=== PATIENT | male | born 1960 | race Caucasian/White ===

== ENCOUNTER 2020-05-30 10:16 | Outpatient (RCR) | payer MEDICAID, SELFPAY | END 2020-06-22 23:59 | disposition home or self-care (01) | LOC: SPT 10:16 | PROVIDERS: PCP Family Medicine; Referring Provider Family Medicine; Visit Provider Family Medicine | DX: G89.29 Other chronic pain (principal); M54.9 Dorsalgia, unspecified | CPT/HCPCS: 97110; 97161; G0283 ==

== ENCOUNTER 2020-06-07 10:11 | Outpatient (CLI) | payer MEDICAID, SELFPAY ==
--- NOTE | 2020-06-07 10:34 | CT_ITS ---
WS: [id number] LDCT LUNG CANCER SCREENING HISTORY: NICOTINE DEPENDENCE TECHNIQUE: Axial imaging performed from the apices to 1 cm below the costophrenic angles. Coronal and sagittal reformats are submitted with axial MIP series. All CT scans at [facility] use at least one of these dose optimization techniques: automated exposure control; mA and/or kV adjustment per patient size (includes targeted exams where dose is matched to clinical indication); or iterativ e reconstruction. DLP: 59.14 mGy.cm DIvol: 1.58 mGy COMPARISON: 07/17/2006 Diagnostic quality: Satisfactory Lung Nodules: None. No endobronchial lesions. Lungs: Chronic emphysema with mild articular relations in the periphery of the lobes. No bronchiectas is. Heart: Mild cardiomegaly. Extensive coronary artery calcifications involving the LEFT anterior descen ding and circumflex arteries. No pericardial effusion. Other findings: Mild atherosclerosis aorta. Calcification extends into the proximal great vessels. Pu lmonary artery size is equal to the aorta. Mild circumferential thickening of the distal esophagus. CT/CT lung screening [id number] IMPRESSION: LUNG-RADS: 1S-Negative with Significant Findings FOLLOW UP: 12 Month: Continue annual screening with LDCT OTHER FINDINGS (S MODIFIER): Moderate coronary artery atherosclerosis.
== END 2020-06-07 10:12 | disposition home or self-care (01) ==
LOC: CT 10:15
PROVIDERS: PCP Family Medicine; Visit Provider Family Medicine
DX: Z12.2 Encounter for screening for malignant neoplasm of respiratory organs (principal); F17.200 Nicotine dependence, unspecified, uncomplicated
CPT/HCPCS: G0297

== ENCOUNTER 2020-06-28 07:23 | Day surgery (SDC) | payer MEDICAID, SELFPAY ==
[2020-06-26 14:00] VITALS: BMI 25.8
[2020-06-28 08:00] VITALS: BP 124/80; PULSE 82; RESP 18; TEMP 36.4; O2SAT 98
[2020-06-28] MEDS: sodium chloride 0.9% 1,000 ML 30 ML IV (08:11)
--- NOTE | 2020-06-28 08:24 | ANES.PREANE2 ---
Pre-Anesthetic Assessment Pre-Anesthetic Assessment: Height/Weight: Height 1.75 m Weight 79.379 kg Temp Pulse Resp BP Pulse Ox 97.5 F L 82 18 124/80 98 06/28/20 08:00 06/28/20 08:00 06/28/20 08:00 06/28/20 08:00 06/28/20 08:00 Preop Diagnosis: History of colon polyps Proposed Procedure: Operation Date: 06/28/20 08:30 Proposed Procedures p Colonoscopy 81687 z86.010(Not Applicable) - Jaxon Cruz MD Operation Date: 06/28/20 08:30 Proposed Procedures p Colonoscopy 11370 Z86.010(Not Applicable) - Jaxon Cruz MD Familial anesthetic complications: None Was Beta Leandra taken within 24 hours: Yes Last intake: Intake Last Liquid Date 06/27/20 Last Liquid Time 23:00 Last Solid Date 06/26/20 Last Solid Time 17:00 Social: Social History: Tobacco and No alcohol Exam: Pre-Anes Outpt Exam: alert, oriented x 3, clear to auscultation bilaterally and regular rate & rhythm Airway: Cervical ROM: WNL MP: 3 Dentition: Full Additional comments: Full aguila Pulmonary: Pulmonary: COPD CV/HEM: CV/HEM: CAD (seen on CT scan) and HTN Metabolic: Metabolic: Hyperlipidemia Anesthetic Plan: ASA status: 3 Anesthesia: MAC Risk of > 500 ml blood loss (7ml/kg in children): No Meds/Allergies Current Medications: Current Medications Generic Name Dose Route Start Last Admin Trade Name Freq PRN Reason Stop Dose Admin Sodium Chloride 1,000 mls @ 30 ml s/hr 06/28/20 08:00 06/28/20 08:11 Sodium Chloride 0.9% IV 06/29/20 07:59 30 mls/hr .Q24H JOSE Administration PFSH Anesthesia PFSH: Surgical History History of colonoscopy with polypectomy (~2012) Family History Mother CAD (coronary artery disease) Diabetes Hypertension Denies family history of Anesthesia complication Bleeding disorder Social History Smoking and tobacco status: current every day smoker cigarettes Packs smoked per day: 1 Years cigarettes smoked: 30 Data Anesthesia Cardiac Studies: No Data to Display
--- NOTE | 2020-06-28 09:09 | ANES.PREANE2 ---
Pre-Anesthetic Assessment Pre-Anesthetic Assessment: Height/Weight: Height 1.75 m Weight 79.379 kg Temp Pulse Resp BP Pulse Ox 97.5 F L 82 18 124/80 98 06/28/20 08:00 06/28/20 08:00 06/28/20 08:00 06/28/20 08:00 06/28/20 08:00 Preop Diagnosis: History of colon polyps Proposed Procedure: Operation Date: 06/28/20 08:30 Proposed Procedures p Colonoscopy 47784 z86.010(Not Applicable) - Jaxon Cruz MD Operation Date: 06/28/20 08:30 Proposed Procedures p Colonoscopy 79980 Z86.010(Not Applicable) - Jaxon Cruz MD Familial anesthetic complications: None Was Beta Leandra taken within 24 hours: Yes Last intake: Intake Last Liquid Date 06/27/20 Last Liquid Time 23:00 Last Solid Date 06/26/20 Last Solid Time 17:00 Social: Social History: Tobacco and No alcohol Exam: Pre-Anes Outpt Exam: alert, oriented x 3, clear to auscultation bilaterally and regular rate & rhythm Airway: MP: 3 Dentition: Full Additional comments: full aguila Pulmonary: Pulmonary: COPD CV/HEM: CV/HEM: HTN Metabolic: Metabolic: Hyperlipidemia Anesthetic Plan: ASA status: 3 Anesthesia: MAC Risk of > 500 ml blood loss (7ml/kg in children): No Meds/Allergies Current Medications: Current Medications Generic Name Dose Route Start Last Admin Trade Name Freq PRN Reason Stop Dose Admin Sodium Chloride 1,000 mls @ 30 ml s/hr 06/28/20 08:00 06/28/20 08:11 Sodium Chloride 0.9% IV 06/29/20 07:59 30 mls/hr .Q24H JOSE Administration PFSH Anesthesia PFSH: Surgical History History of colonoscopy with polypectomy (~2012) Family History Mother CAD (coronary artery disease) Diabetes Hypertension Denies family history of Anesthesia complication Bleeding disorder Social History Smoking and tobacco status: current every day smoker cigarettes Packs smoked per day: 1 Years cigarettes smoked: 30 Data Anesthesia Cardiac Studies: No Data to Display
--- NOTE | 2020-06-28 09:10 | W.PM.OPSUD ---
Surgery/Procedure H&P Update DATE OF PROCEDURE: June 28, 2020 DATE H&P PERFORMED: 06/01/20 H&P UPDATE INFORMATION: I have reviewed H&P completed within last 30 days, I have examined patient prior to procedure and No changes to prior documentation PREOP DIAGNOSIS: History of colon polyps PRIMARY INDICATION FOR PROCEDURE: The same PLANNED PROCEDURE: Operation Date: 06/28/20 08:30 Proposed Procedures p Colonoscopy 82609 z86.010(Not Applicable) - Jaxon Cruz MD Operation Date: 06/28/20 08:30 Proposed Procedures p Colonoscopy 28496 Z86.010(Not Applicable) - Jaxon Cruz MD
[2020-06-28 09:40] VITALS: BP 128/86; PULSE 108; RESP 18; TEMP 37.2; O2SAT 99
--- NOTE | 2020-06-28 09:44 | ANE.PACU2 ---
Inpatient post-anesthesia follow up: Airway intact: Yes Vital signs: Temperature 97.5 F Pulse Rate 82 Respiratory Rate 18 Blood Pressure 124/80 Pulse Oximetry 98 Oxygen Delivery Me thod Room Air Oxygen Flow Rate Fraction of Inspir ed Oxygen Hydration adequate: Yes Nausea and vomiting: No Pain level: 1 Mental status: Baseline
[2020-06-28 10:02] VITALS: BP 120/89; PULSE 95; RESP 18; O2SAT 95
== END 2020-06-28 10:05 | disposition home or self-care (01) ==
PROVIDERS: PCP Family Medicine; Visit Provider Surgery
DX: Z86.010 Personal history of colon polyps (principal); D12.8 Benign neoplasm of rectum; J44.9 Chronic obstructive pulmonary disease, unspecified; I10 Essential (primary) hypertension; E78.5 Hyperlipidemia, unspecified; F17.210 Nicotine dependence, cigarettes, uncomplicated
CPT/HCPCS: 12345; 45385; J2704; J7030

== ENCOUNTER 2020-12-15 06:48 | Outpatient (CLI) | payer MEDICAID, SELFPAY ==
--- NOTE | 2020-12-15 07:10 | MR_ITS ---
WS: [id number] MRI BRAIN WITHOUT CONTRAST HISTORY: MILD COGNITIVE IMPAIRMENT COMPARISON: None available. TECHNIQUE: Diffusion imaging, multiplanar T1, T2 and FLAIR imaging obtained. No evidence for acute infarct or hemorrhage. Currie-white matter differentiation is normal. There are numerous round T2 and FLAIR signal hyperintensities in the supratentorial white matter. The se extend from the vertex inferiorly throughout the supratentorial brain. Predominantly subcortical w billy matter lesions but there are few lesions adjacent to the occipital horns. No associated edema or mass effect. Ventricles and extra-axial spaces are normal. No inferior displacement of cerebellar tonsils. The sella turcica and pituitary gland are unremarkabl e. Dural venous sinuses and [place] demonstrate no abnormality on this unenhanced studies. Paranasal sinuses: Air-fluid level in the RIGHT maxillary sinus. Mastoid air cells: Moderate bilateral mastoid air cell effusions. Calvarium and scalp: Intact. MR/MR head wo con* [id number] IMPRESSION: 1. No acute infarct. 2. Numerous round signal hyperintensities in the supratentorial brain. More th an expected for age. These abnormalities may be related to small vessel ischemi c disease, migraines, vasculitis and less likely demyelination. Due to the exte nt of these white matter lesions suggest follow-up MRI brain with contrast to a short there is no enhancement.
== END 2020-12-15 06:49 | disposition home or self-care (01) ==
LOC: RADSHAW 06:50
PROVIDERS: PCP Family Medicine; Visit Provider Family Medicine
DX: G31.84 Mild cognitive impairment of uncertain or unknown etiology (principal)
CPT/HCPCS: 70551

== ENCOUNTER 2021-01-19 07:44 | Outpatient (CLI) | payer MEDICAID, SELFPAY ==
--- NOTE | 2021-01-19 08:03 | MR_ITS ---
WS: [id number] MRI HEAD WITH GADOLINIUM ENHANCEMENT INDICATION: Cognitive impairment TECHNIQUE: Sagittal T1, coronal T2, axial T2, and post gadolinium imaging was obtained. FINDINGS: Comparison recent MRI December 15, 2020. Post gadolinium imaging was obtained today for compari son to recent noncontrast MRI. Again seen are moderate supratentorial white matter changes unchanged since the prior examination. No rmal posterior fossa. Normal vascular flow voids at the skull base. No extra-axial fluid collections. Mild mucosal thickening paranasal sinuses. Opacification mastoid air cells bilaterally. 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 Normal optic chiasm and pituitary infundibulum. Normal cavernous sinuses and Meckel's cave. Proximal 7th and 8th cranial nerves appear normal. No abnormal intracranial enhancement. No enhancing intracranial lesions. Normal dural venous sinuses. No other significant findings. MR/MR head w con [id number] IMPRESSION: 1. Moderate patchy supratentorial white matter changes are stable with mild pa renchymal volume loss. Findings are nonspecific but most likely due to small ve ssel disease in a patient this age. 2. No abnormal intercranial enhancement. No enhancing intracranial lesions. 3. Opacification mastoid air cells bilaterally. 4. Mild mucosal thickening in the paranasal sinuses.
[2021-01-19] MEDS: gadobenate dimeglumine 20 mL vial IV (08:35)
== END 2021-01-19 07:45 | disposition home or self-care (01) ==
LOC: RADWPI 07:53
PROVIDERS: PCP Family Medicine; Visit Provider Family Medicine
DX: G31.84 Mild cognitive impairment of uncertain or unknown etiology (principal)
CPT/HCPCS: 70552; A9577

== ENCOUNTER 2021-01-24 07:15 | Outpatient (CLI) | payer MEDICAID, SELFPAY ==
[2021-01-24 07:39] VITALS: BMI 26.1
--- NOTE | 2021-01-24 07:41 | ECG_ITS ---
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 The perfusion scan will be documented separately. DATA: Baseline heart rate was 84 beats per minute. Baseline blood pressure was 143/91 millimeters of mercury. Target heart rate was 159. Maximum heart rate achieved was 107. which was 67 % of the predicted target heart rate. Maximum blood pressure was 147/91 millimeters of mercury. The reason for ending the test was completion of the protocol. The patient did not experience any symptoms. ELECTROCARDIOGRAM: BASELINE: Sinus rhythm. Normal axis. Interventricular conduction delay, early repolarization abnormality. Otherwise, no ST-T changes suggestive of ischemia noted. No arrhythmia noted. EXERCISE: After Lexiscan injection, no ST-T changes suggestive of ischemic noted. No arrhythmia noted. CONCLUSION: Please note due to baseline abnormality of the EKG specificity and sensitivity of the EKG portion of LexiScan MIBI stress test will be low 1. EKG not suggestive of ischemia 2. Lexiscan injection unremarkable. 3. Perfusion scan will be documented separately. Electronically Signed On 01-25-2021 21:07:16 CDT by LINDSEY DUNAWAY [id number]
--- NOTE | 2021-01-24 07:42 | NMCV_ITS ---
NM carmen perf SPECT r/s* [id number] Niraj Welsh Age: 60 Gender: M : 1960 Exam Date: 01/24/2021 08:42 Ordering Phys: Lindsey Dunaway MD ([email or web address]) Technologist: RAJWINDER Candelario Exam Location: [facility] Indications: PERIPHERAL VASCULAR DISEASE STRESS TEST Please see separate stress test report in [facility] for full findings IMAGE PROTOCOL Rest/Stress 1 Lexiscan Day Radiopharmaceutical Dose (mCi) Administration Site Administered by Rest: Tc-99m 10.9 IV RAJWINDER Vaughan Sestamibi Stress:Tc-99m 32.8 IV RAJWINDER Candelario Sestamiflako Rest: 24-Jan-2021 60 Discovery 630 Stress: 24-Jan-2021 30 Discovery 630 0.4mg Lexiscan. Images obtained in supine and prone position. SPECT RESULTS Technical Quality: Excellent Raw Data Analysis: Normal Image Corrections: No attenuation or motion correction applied Summed Stress Score: 29 Summed Rest Score: 29 Summed Difference Score: 2 PERFUSION FINDINGS Large area of fixed perfusion defect noted in basal to distal anterior, basal to distal inferior and basal to distal inferolateral wall suggestive of old myocardial infarction versus scarring. No significant ischemia noted FUNCTIONAL RESULTS (calculated via Gated SPECT) Stress Image LV EF (%): 40 Stress EDV (mL):288 TID: 1.2 Stress ESV (mL):174 FUNCTIONAL FINDINGS: Mid to distal anterior lateral inferior and apical wall akinesis IMPRESSIONS Large area of old myocardial infarction versus scarring noted mid to distal anterior apical inferior and inferolateral wall suggestive of multivessel disease. No ischemia noted. EKG segment will be documented separately Lindsey Dunaway MD (Electronically Signed) Final Date: 24 January 2021 14:43 S
[2021-01-24] MEDS: regadenoson 0.4 Mg/5 ml Syringe IVP (09:43)
[2021-01-24 09:54] VITALS: BP 147/84; PULSE 98
--- NOTE | 2021-01-24 11:00 | USCV_ITS ---
Niraj Welsh Age: 60 Gender: M : 1960 Exam Date: 01/24/2021 07:46 Ordering Phys: Lindsey Dunaway MD ([email or web address]) Technologist: Glo Brower Exam Location: [facility] [place] Indication: LEG PAIN RIGHT LEFT Brachial mmHg Brachial 139.00 mmHg Pressure (mmHg) Waveform Pressure (mmHg) Waveform 99.00 Above Knee 157.00 129.00 Below Knee 172.00 125.00 SKIN DRIER 176.00 115.00 DPA 166.00 0.83 Ankle/Brachial Index 1.26 106.00 Pre-Exercise Toe Pressure 170.00 0.76 Pre-Exercise Toe/Brachial Index 1.22 FINDINGS Brachial BP not performed due to IV in antecub for Nuclear test Normal resting GERARD and TBI on the left side Slightly diminished resting GERARD on the right side Normal resting TBI on the right side Normal PVR waveforms on the left side Slightly abnormal PVR waveforms on the right side CONCLUSIONS Possible mild peripheral artery disease on the right side No significant arterial obstruction on the left side Technically difficult study Consider repeating the study on the right side, if clinically indicated Dr Stacey Patel MD [facility] (Electronically Signed) Final Date: 28 January 2021 21:25 S
== END 2021-01-24 07:16 | disposition home or self-care (01) ==
LOC: CDL 07:18
PROVIDERS: PCP Family Medicine; Visit Provider Internal Medicine Cardiovascular Disease
DX: I73.9 Peripheral vascular disease, unspecified (principal); M79.604 Pain in right leg; M79.605 Pain in left leg; I25.2 Old myocardial infarction
CPT/HCPCS: 78452; 93017; 93923; A9500; J2785

== ENCOUNTER → 2021-02-02 08:38 | Outpatient (BNVA) | payer MEDICAID, SELFPAY | PROVIDERS: PCP Family Medicine; Visit Provider Nurse Practitioner | DX: R41.3 Other amnesia (principal); R25.1 Tremor, unspecified; R93.0 Abnormal findings on diagnostic imaging of skull and head, not elsewhere classified; F17.210 Nicotine dependence, cigarettes, uncomplicated | CPT/HCPCS: 99204 ==

== ENCOUNTER 2021-02-12 08:49 | Outpatient (CLI) | payer MEDICAID, SELFPAY ==
--- NOTE | 2021-02-12 08:59 | FL_ITS ---
WS: [id number] LUMBAR PUNCTURE CLINICAL INFORMATION: MULTIPLE SCLEROSIS COMPARISON: None. TECHNIQUE: Informed consent: The procedure and its potential risk and complications were discussed with the whitney ent. Verbal and written consent was obtained. Timeout: A timeout was performed to confirm correct patient, procedure, and site. Patient was prepped and draped in the usual sterile fashion. Lidocaine 1% was used for local anesthes ia. Utilizing fluoroscopic guidance, a 3.5 inch 22-gauge spinal needle was advanced into the subarach noid space at L4-5 via left oblique sublaminar approach. Free flow of clear CSF was obtained. 16 cc o f CSF was collected and sent the lab for further analysis. FLUOROSCOPIC TIME: 0.1 minutes. FL/FL guided lumbarpunc dx* [id number] IMPRESSION: Fluoroscopically guided lumbar puncture. No immediate complications
[2021-02-12 09:49] LABS: INR 0.92 (0.8-1.2)
[2021-02-12 09:56] LABS: C Reactive Protein 3.1 mg/L (0.0-4.9); Creatine Phosphokinase 116 U/L (39-308)
[2021-02-12 10:11] LABS: Vitamin B12 357 pg/mL (232-1245)
[2021-02-12 10:38] LABS: Erythrocyte Sedimentation Rate 6 mm/hr (0-10)
[2021-02-12 10:53] LABS: CSF Mononuclear # 0.004 10^3/uL (50-90); Mononuclear WBC CSF % 100 % (50-90); Polynuclear WBC CSF % 0 % (0-10); Red Blood Cell CSF 0 10^3/uL (0-0); White Blood Cell CSF 4 /uL (0-5)
[2021-02-12 11:10] LABS: Appearance CSF CLEAR (CLEAR); Color CSF COLORLESS (COLORLESS); Pathology Referral Yes
[2021-02-12 11:32] LABS: Glucose CSF 56 mg/dL (40-70); Total Protein CSF 66 mg/dL (15-45)
[2021-02-13 11:41] LABS: COMPLEMENT COMPONENT C3C 114 mg/dL (82-185); COMPLEMENT COMPONENT C4C 23 mg/dL (15-53)
[2021-02-13 12:33] LABS: Lymes IGG WB <0.90 index
[2021-02-14 15:36] LABS: COMPLEMENT, TOTAL (CH50) 36 U/mL (31-60)
[2021-02-15 12:47] LABS: THYROID PEROXIDASE ANTIBODIES 1 IU/mL (<9)
[2021-02-15 13:24] LABS: CENTROMERE B ANTIBODY <1.0 NEG AI (<1.0 NEG); JO-1 ANTIBODY <1.0 NEG AI (<1.0 NEG); RNP ANTIBODY <1.0 NEG AI (<1.0 NEG); SCL-70 ANTIBODY <1.0 NEG AI (<1.0 NEG); SJOGREN'S ANTIBODY (SS-A) <1.0 NEG AI (<1.0 NEG); SM ANTIBODY <1.0 NEG AI (<1.0 NEG); SS-B <1.0 NEG AI (<1.0 NEG)
[2021-02-15 16:03] LABS: ANA SCREEN, IFA NEGATIVE (NEGATIVE)
[2021-02-16 13:42] LABS: AQP4 AB Titer CSF NEGATIVE (NEGATIVE)
[2021-02-20 12:26] LABS: DNA AB (DS) CRITHIDIA,IFA NEGATIVE (NEGATIVE)
[2021-02-22 14:32] LABS: Oligoclonal Bands IGG, CSF BANDS NOTED (NO BANDS)
== END 2021-02-12 08:50 | disposition home or self-care (01) ==
LOC: RAD 08:52
PROVIDERS: PCP Family Medicine; Visit Provider Nurse Practitioner
DX: G35 Multiple sclerosis (principal)
CPT/HCPCS: 36415; 62328; 80500; 82550; 82607; 82945; 83916; 84157; 85610; 85651; 86140; 86160; 86162; 86225; 86235; 86255; 86376; 86617; 87070; 87075; 87205; 89050

== ENCOUNTER 2021-02-23 09:33 | Outpatient (CLI) | payer MEDICAID, SELFPAY ==
--- NOTE | 2021-02-23 10:00 | CT_ITS ---
WS: [id number] CTA HEAD AND NECK TECHNIQUE: Contrast enhanced CTA of the head and neck with coronal and sagittal reformatted images an d maximum intensity projection (MIP) images. NASCET criteria utilized. CLINICAL INFORMATION: I67.9 - Cerebrovascular disease, unspecified COMPARISON: MRI December 15, 2020 DLP: 2034.[address] scans at [facility] use at least one of these dose optimization techniques: automated e xposure control; mA and/or kV adjustment per patient size (includes targeted exams where dose is matc hed to clinical indication); or iterative reconstruction. FINDINGS: Mild to moderate small vessel changes. Mild parenchymal volume loss. No evidence of intracranial hemo rrhage or mass effect. Noncontrast imaging. No extra-axial fluid collections. Left mastoid air cells are well aerated. Partial opacification of the right mastoid air cells and right middle ear. This is similar to the prior MRI. Recommend correlation for otitis media. RIGHT: Right common carotid artery is patent. Mild calcified atheromatous plaque right carotid bulb w ithout significant stenosis. Tortuous right cervical ICA at the skull base which remains patent. Mode rate intracranial cavernous carotid atheromatous disease. LEFT: Left common carotid artery is patent. Moderate calcified atheromatous disease left carotid bulb without significant left ICA stenosis. Left ICA is patent to the skull base. Moderate intracranial c avernous carotid calcification. INTRACRANIAL CTA: Codominant and patent vertebral arteries bilaterally. Basilar artery is patent. Normal vascularity to the HYDROLOGY TEACHER territory bilaterally. ICA is patent to the skull base. Moderate cavernous carotid calcifica tion bilaterally. Normal vascularity to the GONZALO and MCA territories bilaterally. No evidence of flow- limiting stenosis or aneurysm. Patent anterior communicating artery. Moderate chronic emphysematous changes in the lung apices. Normal posterior nasopharynx. Normal parap haryngeal fat. No cervical lymphadenopathy. Mild spondylitic changes cervical spine. Normal visualize d dural venous sinuses. CT/CT angio headneck* [id number] IMPRESSION: 1. No significant ICA stenosis bilaterally. Both ICAs are patent to the skull base. 2. Mild calcified atheromatous plaque right carotid bulb. Moderate calcified a theromatous plaque left carotid bulb. 3. Codominant and patent vertebral arteries bilaterally. 4. Moderate calcified atheromatous disease involving both cavernous carotid in tracranial segments. No flow-limiting stenosis. 5. Otherwise normal intracranial CTA without flow-limiting stenosis or aneurys m.
[2021-02-23 10:12] LABS: Blood Urea Nitrogen 16 mg/dL (8-23); Glomerular Filtration Rate 61.6 mL/min (90-130)
[2021-02-23] MEDS: iohexol 350 mg/mL 100 mL Btl IV (10:26)
== END 2021-02-23 09:34 | disposition home or self-care (01) ==
PROVIDERS: PCP Family Medicine; Visit Provider Nurse Practitioner
DX: I67.9 Cerebrovascular disease, unspecified (principal); I65.23 Occlusion and stenosis of bilateral carotid arteries
CPT/HCPCS: 70496; 70498; 82565; 84520; Q9967

== ENCOUNTER 2021-03-06 08:59 | Outpatient (CLI) | payer MEDICAID, SELFPAY ==
[2021-03-06] MEDS: iohexol 350 mg/mL 100 mL Btl IV (09:44)
--- NOTE | 2021-03-06 10:00 | USCV_ITS ---
Niraj Welsh Age: 60 Gender: M : 1960 Exam Date: 03/06/2021 09:22 Ordering Phys: Lindsey Dunaway MD ([email or web address]) Technologist: Faisal Rincon [place] [facility] [place]: CHEST PAIN BP: 130 / 80 HR: 77 Rhythm: Sinus Technical Quality: Adequate MEASUREMENTS (Male / Female) Normal Values 2D ECHO LV Diastolic Diameter PLAX 5.9 cm 4.2 - 5.9 / 3.9 - 5.3 cm LV Systolic Diameter PLAX 5.1 cm IVS Diastolic Thickness 1.1 cm 0.6 - 1.0 / 0.6 - 0.9 cm IVS Systolic Thickness 1.3 cm LVPW Diastolic Thickness 1.1 cm 0.6 - 1.0 / 0.6 - 0.9 cm LVPW Systolic Thickness 1.2 cm LVOT Diameter 2.5 cm LV Ejection Fraction 2D Teich 28.0 % LV Ejection Fraction MOD 2C 58.3 % LV Ejection Fraction 2C AL 57.6 % LA Diameter 4.6 cm LA Width 4.9 cm LA Height 5.7 cm RA Width 4.3 cm RA Height 4.8 cm Aorta at Sinotubular Diameter 3.3 cm M-MODE MV E Point Septal Separation 1.7 cm DOPPLER AV Peak Velocity 110.0 cm/s LVOT Peak Velocity 70.0 cm/s AV Area Cont Eq vti 2.7 cm squared AV Area Cont Eq pk 3.2 cm squared MV Area PHT 5.0 cm squared Mitral E to A Ratio 0.9 MV E' Velocity 32.0 cm/s Mitral E to MV E' Ratio 8.4 Mitral E to LV E' Lateral Ratio 8.3 Mitral E to LV E' Septal Ratio 8.7 TR Peak Velocity 201.3 cm/s TR Peak Gradient 16.2 mmHg TV Peak E Velocity 77.0 cm/s Right Atrial Pressure 3.0 mmHg Pulmonary Artery Systolic Pressu 19.2 mmHg FINDINGS Left Ventricle Moderately increased left ventricular cavity size. Severely decreased left ventricular systolic function. Global left ventricular hypokinesis. Left ventricular ejection fraction is estimated at 28 %. Grade I/IV diastolic dysfunction (abnormal relaxation filling pattern), normal to mildly elevated filling pressures. Right Ventricle The right ventricle is normal in size and function. Right Atrium The right atrium is normal in size. Left Atrium The left atrium is normal in size. Mitral Valve Moderately thickened mitral valve. No mitral valve stenosis. Moderate mitral valve regurgitation. Aortic Valve Moderate aortic valve calcification. No aortic valve stenosis. Trace aortic valve regurgitation. Tricuspid Valve Moderate tricuspid valve regurgitation. Pulmonic Valve Structurally normal pulmonic valve without significant stenosis. There is no pulmonic regurgitation. Pericardium Normal pericardium without effusion. Aorta Normal ascending aorta dimension. CONCLUSIONS 1-Moderately increased left ventricular cavity size. Severely decreased left ventricular systolic function. Global left ventricular hypokinesis. Left ventricular ejection fraction is estimated at 28 %. Grade I/IV diastolic dysfunction (abnormal relaxation filling pattern), normal to mildly elevated filling pressures. 2-Moderately thickened mitral valve. No mitral valve stenosis. Moderate mitral valve regurgitation. 3-Moderate aortic valve calcification. No aortic valve stenosis. Trace aortic valve regurgitation. 4-Moderate tricuspid valve regurgitation. 5-There is no pericardial effusion. 6-Pulmonary artery systolic pressure is within normal limits. 7-Right atrial pressure is around 5 mm of mercury. 8-There are no prior echocardiogram studies to compare. Lindsey Dunaway MD (Electronically Signed) Final Date: 06 March 2021 20:18 S
--- NOTE | 2021-03-06 10:00 | CT_ITS ---
WS: [id number] CT ANGIOGRAPHY OF THE ABDOMINAL AORTA WITH RUNOFF TO THE ANKLES HISTORY: I73.9 - Peripheral vascular disease, unspecified TECHNIQUE: Arterial injection is performed during imaging to evaluate the aorta and runoff vessels to the ankles. MIP and volume rendering imaging has also been performed. All images are reviewed. All C T scans at [facility] use at least one of these dose optimization techniques: automated exposu re control; mA and/or kV adjustment per patient size (includes targeted exams where dose is matched t o clinical indication); or iterative reconstruction. Contrast: Omnipaque 350; 95 mL IV. DLP: 1529.16 mGy.cm COMPARISON: None available. Chronic emphysematous changes at the lung bases. Moderate enlargement of all 4 chambers of the heart. Diffuse moderate circumferential esophageal wall thickening and small hiatal hernia. Abdominal aorta: Extensive atherosclerotic plaque within the abdominal aorta. There is very mild ecta bang in the infrarenal aorta aorta. No aneurysm. Near 70 % stenosis origin celiac axis. SMA is normal caliber. Mild atherosclerosis renal arteries. Only single renal arteries are identified bilaterally. RIGHT lower extremity arterial system: Moderate stenosis at the origin of the RIGHT common iliac domenico ry. Stenosis calculated at 74%. There is diffuse calcified plaque and intimal thickening throughout. Very mild aneurysmal dilatation of the mid common iliac artery to 15 mm. Moderate atherosclerotic jodi que continues into the internal and external iliac arteries. Moderate stenosis involving the origin o f the deep profunda. There is multifocal plaque throughout the SFA and profunda. Multifocal areas of stenosis. High-grade stenosis versus a completed occlusion in the distal SFA just prior to Raúl's c anal. Multifocal areas of plaque with attempts at reconstitution. In the mid Raúl's canal there is near normal caliber again although calcified plaque at multiple levels. Popliteal artery is intact. S mall caliber three-vessel runoff to the ankle. Posterior tibial artery is completely occluded. LEFT lower extremity arterial system: Multifocal areas of plaque and intimal thickening throughout th e common iliac artery into the internal and external iliac arteries. Stenosis less than 50%. Mild ect lissette of the common femoral artery. SFA and deep profunda are intact with multifocal areas of plaque. Increasing plaque in the mid to distal SFA and to Raúl's canal. Most significant area of stenosis i s 45%. Mild atherosclerosis in the popliteal artery but no aneurysm or occlusion. Multifocal areas of plaque throughout the tibial and peroneal arteries. Proximally the posterior tibial artery becomes o ccluded. Intermittent visualization of the anterior and peroneal arteries. Hepatomegaly. Normal adrenal glands. Kidneys are perfused bilaterally symmetrically. No ascites. No G I tract obstruction. Prostate gland is slightly enlarged with central calcifications. Mild diffuse th ickening of the bladder wall. Degenerative LEFT curvature lumbar spine. CT/CT angio abd aorta runof [id number] IMPRESSION: 1. Moderate atherosclerotic plaque within the abdominal aorta. 2. 50% stenosis involving the origin of the celiac axis. 3. Stenosis at the origin of the RIGHT common internal iliac artery, 74%. 4. High-grade stenosis, greater than 90% involving RIGHT Raúl's canal. 5. LEFT Raúl's canal stenosis at 45%. 6. Small caliber or occluded bilateral posterior tibial arteries which are not identified beyond their proximal locations. 7. Small caliber anterior tibial and peroneal arteries to the ankle.
== END 2021-03-06 09:00 | disposition home or self-care (01) ==
LOC: US 09:01
PROVIDERS: PCP Family Medicine; Visit Provider Internal Medicine Cardiovascular Disease
DX: I73.9 Peripheral vascular disease, unspecified (principal); R06.02 Shortness of breath; R07.9 Chest pain, unspecified; I08.3 Combined rheumatic disorders of mitral, aortic and tricuspid valves; I70.0 Atherosclerosis of aorta; I70.8 Atherosclerosis of other arteries
CPT/HCPCS: 75635; 93306

== ENCOUNTER → 2021-03-08 14:33 | Outpatient (BNVA) | payer MEDICAID, SELFPAY | PROVIDERS: PCP Family Medicine; Visit Provider Nurse Practitioner Family | DX: I50.20 Unspecified systolic (congestive) heart failure (principal); I73.9 Peripheral vascular disease, unspecified | CPT/HCPCS: 80048; 83880; 85025 ==

== ENCOUNTER → 2021-03-20 08:45 | Outpatient (BNVA) | payer MEDICAID, SELFPAY | PROVIDERS: PCP Family Medicine; Visit Provider Internal Medicine Cardiovascular Disease | DX: Z01.818 Encounter for other preprocedural examination (principal); R06.02 Shortness of breath; R07.2 Precordial pain; Z20.822 Contact with and (suspected) exposure to COVID-19 | CPT/HCPCS: 80048; 85025; 85610; 87635 ==

== ENCOUNTER 2021-03-26 06:01 | Outpatient (CLI) | payer MEDICAID, SELFPAY ==
[2021-03-26] VITALS (16 sets, daily range): BP systolic 120–146; BP diastolic 83–99; PULSE 84–103; RESP 15–26; TEMP 36.7; O2SAT 89–99; BMI 27.6
--- NOTE | 2021-03-26 06:00 | XACV_ITS ---
Ht: 175 cm Wt: 85 kg BSA: 2.05 m2 Gender: Male : 1960 Any Known Allergies: Penicillins Exam Priority: Routine Procedure(s): Procedure Description: Diagnostic procedure Procedure Description: Coronary Angiography IVYU2, Dunaway; Diagnostic Cath Status: Elective Diagnostic Findings * Left Main has no disease. * Circumflex has no disease. * Right Coronary Artery has no disease. * Mid Left Anterior Descending: total occlusion, GILLIAN: 3 flow. * Second Obtuse Marginal Branch Segment to Distal Left Anterior Descending collaterallization. * Third Obtuse Marginal Branch Segment to 3rd Left Anterior Descending Septal It Support Engineer Segment collaterallization. * Coronary angiography shows left dominance. Conclusions 1. There is total occlusion coronary artery disease with one vessel disease. 2. Patient has prior CABG. 3. There appeared to be chronically occluded mid LAD which is small caliber but long vessel however it filled retrogradely through left to left collaterals.. Recommendations * Continue current medical management and risk factor modification. * Return to inpatient for close monitoring and routine cath care. * Risk factor modification for secondary prevention. * Statin and aspirin 81mg lifelong, if tolerated. * Continue medical management and risk factor modification. Diagnostic RX Recommendation: medical therapy and/or counseling Pressures Phase:Rest AO : 112 / 79 ( 91 ) @ 7:57:00 AM Clinical Evaluation EBL: 5mL-10mL Procedural Details Procedure Consent Obtained. Pre-Procedure Time Out. Identified patient by full name and date of as verbalized by the patient/guarantor. Does the consent match the physician's order: Yes. Accurate & Complete Informed Consent: Yes. Inpatient/Outpatient History & Physical on Chart: Yes. If H&P is completed, is and addenduem needed: No; If yes, is the addendum complete: N/A. Visualize and Verify Site with Patient/Guarantor: N/A. Relevant Radiology Images available: N/A. Pre-op teaching completed and patient verbalized understanding. The risks, benefits, and alternatives of sedation and/or procedure were discussed by physician. The patient agrees to continue. Rashida Kapadia RN will be circulating for this procedure. Equipment: 6F - Radial. Cardiac Cath Pack. ACIST Manifold Kit Model BT 2000. Heparinized Saline (2 units/mL), 1000 mL bag. Procedure started. [facility] Clinical Fraility Score: 3: Managing Well. Care Aid Indications: Suspected CAD,abnormal stress test, new onset heart failure. Chest Pain Symptom Assessment: Atypical Angina. Cardiovascular Instability: No. Correct patient, site and procedure confirmed by cath team. PERRLA. Strong, equal hand police commissioner bilaterally. Lungs clear x 5 lobes. IV Site on Arrival: 20 gauge in the left anticubital. IV Fluids: 0.9% NaCl at KVO. 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 Pre Procedural Pulses: right dorsalis pedis was 2+. Pre Procedural Pulses: left dorsalis pedis was Doppled. Pre Procedural Pulses: bilateral posterior tibial was Doppled. Pre Procedural Pulses: bilateral radial was 3+. Oxygen started at 2liters/min via nasal canula. right radial was prepped with chloroprep then draped in the usual sterile fashion. right groin was prepped with chloroprep then draped in the usual sterile fashion. Baseline sample Acquired. HR: 85 BPM. Physician notified. Physician arrived. Physician scrubbed in. Immediate Pre-Procedure Time Out. Correct Patient: Yes; Correct Procedure: Yes; Correct Site: Yes; Correct Patient Position: Yes; Correct Supplies: Yes; Dried Flammable Prep: Yes; Blood Products Available: N/A;. Lidocaine 1% infiltrated to the right radial. Arterial access obtained. A 5 maltese TIG catheter in over wire. Multiple views taken of right coronary artery. Catheter redirected to the LCA. Multiple views taken of left coronary artery. Catheter removed over the exchange wire. Physician scrubbed out. A TR Band was successful obtaining hemostatsis at the Right Radial artery insertion site. TR band placed. Hemostasis obtained. Post Procedure: Pulses reassessed and unchanged. PERRLA. Strong, equal hand police commissioner bilaterally. No VTE prophylaxis required. Medication's Wasted: Lidocaine 1% = 18 mL. Medication's Wasted: Nitro = 49.8 mg. Total IV fluids: 45 mL. Medication's Wasted: Heparin = 1000 units. Contrast type used: Omnipaque 300 mgI/mL, 500 mL bottle. Complications: none. Estimated blood loss: 5mL-10mL. Procedure completed. Patient transferred by wheelchair to CPRU. Vital chart was stopped. Access Site Site: Right Radial artery Sheath Size: 6 Fr Hemostasis Method: TR Band Hemostasis Success: Successful Procedure Medications Start: 8:49 AM Stop: 8:49 AM Medication: Fentanyl Amount: 50 mcg Route: I.V. Start: 8:49 AM Stop: 8:49 AM Medication: Versed Amount: 1 mg Route: I.V. Start: 8:52 AM Stop: 8:52 AM Medication: Versed Amount: 1 mg Route: I.V. Start: 8:55 AM Stop: 8:55 AM Medication: Fentanyl Amount: 50 mcg Route: I.V. Start: 8:56 AM Stop: 8:56 AM Medication: Nitrogylcerin Amount: 200 mcg Route: I.A. Start: 8:57 AM Stop: 8:57 AM Medication: Heparin Amount: 5000 units Route: I.V. I, the attending physician, have reviewed and verified all procedure medications. Yes, all medications given per verbal order History/Risk Factors Hypertension: No Dyslipidemia: No Peripheral Arterial Disease (PAD): No Myocardial Infarction (DC): No Obesity: No Renal Disease: No Tobacco Use: Current/Recent(w/in 1 year) Prior Interventions PCI: No CABG: Yes Valve Surgery: No Report Signatures Finalized by Lindsey Dunaway MD on 04/08/2021 06:12 PM
[2021-03-26] MEDS: diphenhydrAMINE 50 mg Capsule PO (06:42)
--- NOTE | 2021-03-26 08:27 | W.PM.OPSUD ---
Surgery/Procedure H&P Update DATE OF PROCEDURE: March 26, 2021 DATE H&P PERFORMED: 03/08/20 H&P UPDATE INFORMATION: I have reviewed H&P completed within last 30 days, I have examined patient prior to procedure and No changes to prior documentation PREOP DIAGNOSIS: Abnormal stress test, heart failure PRIMARY INDICATION FOR PROCEDURE: New onset of heart failure, LV dysfunction severely depressed PLANNED PROCEDURE: Operation Date: 03/26/21 07:00 Proposed Procedures p Cardiac Catheterization(Left) - Lindsey Dunaway MD PATIENT REASSESSED PRIOR TO SEDATION, WITH NO CHANGE NOTED: Yes PHYSICAL EXAM: alert, oriented x 3 and clear to auscultation bilaterally AIRWAY EVAL/ANESTHESIA PLAN: ASA II and Risks, benefits & alternatives of sedation and/or procedure discussed ADDITIONAL INFORMATION: Patient has been explained all risk benefit and alternative for the procedure patient understand risk for stroke major minor bleed urgent emergent bypass surgery vascular injury hematoma infection and bruising. Patient is a candidate for DAPT. Patient understand risk for contrast-induced nephropathy.
--- NOTE | 2021-03-26 09:16 | SUR.PHASEII ---
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 No hematoma formation noted to radial right access site. Vital signs and assessments per flowsheet. Verbal post cath instructions given. Verbalized understanding. Dr Dunaway to discuss findings with the patient and via telephone. No issues reported. Call light in reach. Informed to call for needs or c/o.
--- NOTE | 2021-03-26 09:23 | SUR.PHASEII ---
post op fluids 0.9% NS infusing at 100 ml/hr as instructed post cath.
--- NOTE | 2021-03-26 10:15 | SUR.PHASEII ---
TR BAND Band deflation began.
--- NOTE | 2021-03-26 11:19 | SUR.PHASEII ---
TR BAND DEFLATION Band deflation complete. Verbal post cath instructions went over again. No c/o voiced. understood teaching.
== END 2021-03-26 12:45 | disposition home or self-care (01) ==
PROVIDERS: PCP Family Medicine; Visit Provider Internal Medicine Cardiovascular Disease
DX: I25.10 Atherosclerotic heart disease of native coronary artery without angina pectoris (principal); I25.82 Chronic total occlusion of coronary artery; R94.39 Abnormal result of other cardiovascular function study; I50.20 Unspecified systolic (congestive) heart failure; Z95.1 Presence of aortocoronary bypass graft; I11.0 Hypertensive heart disease with heart failure; J44.9 Chronic obstructive pulmonary disease, unspecified; E78.5 Hyperlipidemia, unspecified; I73.9 Peripheral vascular disease, unspecified
CPT/HCPCS: 93454; C1769; C1887; C1894; J1644; J2250; J3010; J3490; J7030; Q0163; Q9967

== ENCOUNTER → 2021-05-25 09:13 | Outpatient (BNVA) | payer MEDICAID, SELFPAY | PROVIDERS: PCP Family Medicine; Referring Provider Internal Medicine Cardiovascular Disease; Visit Provider Internal Medicine Cardiovascular Disease | DX: Z01.818 Encounter for other preprocedural examination (principal); I25.10 Atherosclerotic heart disease of native coronary artery without angina pectoris; I73.9 Peripheral vascular disease, unspecified; Z20.822 Contact with and (suspected) exposure to COVID-19 | CPT/HCPCS: 80048; 85025; 85610; 87635 ==

== ENCOUNTER 2021-06-01 07:20 | Outpatient (CLI) | payer MEDICAID, SELFPAY ==
[2021-06-01] VITALS (18 sets, daily range): BP systolic 99–123; BP diastolic 65–86; PULSE 78–93; RESP 12–21; TEMP 36.9; O2SAT 92–97; BMI 27.6
--- NOTE | 2021-06-01 07:30 | XACV_ITS ---
Wt: 85 kg BSA: 2.05 m2 Any Known Allergies: Penicillins Gender: Male : 1960 Exam Type: Invasive Peripheral Vascular Procedure(s): Procedure Description: Peripheral Cath Diagnostic Procedure Procedure Description: Abdominal aortic angiography Procedure Description: Lower extremities' angiography Exam Priority: Routine Gume GREEN; Eduardo Reason for peripheral angiogram: Lifestyle limiting claudication, patient was pretty adamant that he has more cramps pain in the left than the right leg. 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 Right SFA has tight distal significant stenosis, left SFA has luminal irregularity without significant stenosis, bilateral popliteal, tibioperoneal did not have any significant stenosis. Left anterior tibial vessel has distal moderate stenosis but good vessel runoff. Left posterior tibial and peroneal artery has luminal irregularities. Recommendations 1-Return to inpatient for close monitoring and routine cath care2-Risk factor modification for secondary prevention3-Statin and aspirin 81 mg life--long, if tolerated4-Stage peripheral angiogram/PLASTIC SURGEON for right mid SFA over next couple of week5-Continue optimal medical management6-Follow up with Dr. Dunaway in four weeks and your primary care in 10 days. Access Site Site: Right Femoral artery Sheath Size: 6 Fr Hemost... Method: Perclose ([employer]) Hemost... Success: Successful Procedure Details Findings Procedure Consent Obtained. Admit Source: Out Patient. Pre-Procedure Time Out. Identified patient by full name and date of as verbalized by the patient/guarantor. Does the consent match the physician's order: Yes. Accurate & Complete Informed Consent: Yes. Inpatient/Outpatient History & Physical on Chart: Yes. Visualize and Verify Site with Patient/Guarantor: N/A. Relevant Radiology Images available: Yes. The risks, benefits, and alternatives of sedation and/or procedure were discussed by physician. The patient agrees to continue. Procedure started. Correct patient, site and procedure confirmed by cath team. Current diagnosis: PVD. PERRLA. Strong, equal hand rail track layer bilaterally. Lungs clear x 5 lobes. IV Site on Arrival: 20 gauge in the right anticubital. IV Fluids: 0.9% NaCl at KVO. 0 mL infused prior to labview programmer. Pre Procedural Pulses: left dorsalis pedis was 3+. Pre Procedural Pulses: right dorsalis pedis was 2+. Pre Procedural Pulses: bilateral posterior tibial was 1+. Oxygen started at 2liters/min via nasal canula. right groin was prepped with chloroprep then draped in the usual sterile fashion. left groin was prepped with chloroprep then draped in the usual sterile fashion. Physician notified. Baseline sample Acquired. HR: 78 BPM. Physician arrived. Physician scrubbed in. Time out performed with cath team. Lidocaine 1% infiltrated to the right groin. Arterial access obtained with micropuncture set. A 5FrFr UF catheter in over wire. Abdominal aortogram performed in VELEZ @ 10 mL/sec for a total of 30 mL. Catheter pulled back behind the bifurcation and digital subtraction image taken. Glidewire inserted. Glidewire removed. Left lower leg selected and arteriogram performed. Catheter removed over the glide wire. A Right femoral angiogram was performed to determine safe placement of closure device. Total IV fluids: 50 mL. Medication's Wasted: Heparin = 1000 u. A Perclose ([employer]) was successful obtaining hemostatsis at the Right Femoral artery insertion site. PERRLA. Strong, equal hand rail track layer bilaterally. No VTE prophylaxis required. Complications: none. Estimated blood loss: 5mL-10mL. Post Procedure: Pulses reassessed and unchanged. Responsiveness - Normal response to verbal stimuli; alert and oriented, PERRLA. Airway - Unaffected, no intervention required; spontaneous ventilation. Circulation: W/N/L, pulses unchanged. Nausea/Vomiting: No. Procedure completed. Patient transferred by bed to CPRU. Vital chart was stopped. Procedure Medications Start: 9:03 AM Stop: 9:03 AM Medication: Versed Amount: 1 mg Start: 9:03 AM Stop: 9:03 AM Medication: Fentanyl Amount: 50 mcg Start: 9:13 AM Stop: 9:13 AM Medication: Versed Amount: 1 mg Start: 9:13 AM Stop: 9:13 AM Medication: Fentanyl Amount: 50 mcg Route: I.V. I, the attending physician, have reviewed and verified all procedure medications. Yes, all medications given per verbal order History/Risk Factors Hypertension: Yes Dyslipidemia: Yes Peripheral Arterial Disease (PAD): Yes Obesity: No Renal Disease: No Tobacco Use: Current/Recent(w/in 1 year) Prior Interventions PCI: No CABG: No Valve Surgery: No Report Signatures Finalized by Lindsey Dunaway MD on 06/12/2021 03:25 PM
[2021-06-01] MEDS: diphenhydrAMINE 50 mg Capsule PO (08:02)
--- NOTE | 2021-06-01 08:55 | W.PM.OPSFHP ---
Same Day Surgery H&P Indication for Procedure/HPI DATE OF PROCEDURE: June 01, 2021 CHIEF COMPLAINT/INDICATIONFOR SURGICAL PROCEDURE: Lifestyle limiting claudication of both legs more on left than right PREOP DIAGNOSIS: Abnormal CTA runoff, lifestyle limiting claudication PLANNED PROCEDRUE: Operation Date: 06/01/21 08:30 Proposed Procedures p Peripheral Diagnostic(Bilateral) - Lindsey Dunaway MD 60-year-old male past medical history significant for hypertension hyperlipidemia coronary artery disease history of smoking severe peripheral vascular disease bilaterally for worsening of lifestyle limiting claudication underwent CTA with runoff. He was noted to have moderate to severe disease on the right and moderate disease on the left of the iliacs and SFA. Patient says he is hurting more in his left leg than the right. He would like the left leg to be fixed first than the right. We would therefore proceed with a right to left groin approach for peripheral angiogram and LOSS PREVENTION GUARD if indicated. Patient has been explained all risk benefit and alternative for the procedure he understand risk for stroke major minor bleed vascular injury hematoma transfusion pseudoaneurysm acute limb ischemia and amputation. He would like to proceed with it. Medications/Allergies* Home Medications Medication Instructions Recorded Confirmed Type atorvastatin 40 mg tablet 40 mg PO DAILY 06/01/20 06/01/21 History bupropion HCl 150 mg tablet,12 hr 150 mg PO BID 06/01/20 06/01/21 History sustained-release clonazepam 0.5 mg tablet 0.5 mg PO BID PRN 06/01/20 06/01/21 History duloxetine 60 mg capsule,delayed 60 mg PO DAILY 06/01/20 06/01/21 History release metoprolol tartrate 25 mg tablet 25 mg PO DAILY tab 06/01/20 06/01/21 History sulindac 150 mg tablet 150 mg PO BID 06/01/20 06/01/21 History trazodone 100 mg tablet 100 mg PO BEDTIME 06/01/20 06/01/21 History gabapentin 400 mg PO TID 03/26/21 06/01/21 History lisinopril 30 mg PO DAILY 03/26/21 06/01/21 History Allergies/Adverse Reactions Allergy/AdvReac Type Severity Reaction Status Date / Time Penicillins Allergy Severe ADR-Itching Verified 03/26/21 06:39 Current Medications: Generic Name Dose Route Start Last Admin Trade Name Freq PRN Reason Stop Dose Admin Sodium Chloride 1,000 mls @ 50 mls/hr 06/01/21 07:30 06/01/21 08:02 Sodium Chloride 0.9% IV 06/02/21 03:29 Not Given .Q20H ONE Pertinent History/Comorbid Conditions* Medical History (Updated 05/05/21 @ 19:45 by Lindsey Dunaway MD) CAD (coronary artery disease) Cerebral vascular disease Chest pain Rectal polyp Systolic CHF Surgical History (Updated 06/02/20 @ 10:19 by Jaxon Cruz MD) History of colonoscopy with polypectomy (~2012) Family History (Updated 06/01/20 @ 10:59 by Ruth Blanchard RN) Diabetes Mother CAD (coronary artery disease) Mother Hypertension Mother Denies family history of Anesthesia complication Bleeding disorder Social History Alcohol intake: never History of recent travel: No Pertinent Exam Findings alert, oriented x 3, clear to auscultation bilaterally and regular rate & rhythm Conscious Sedation Assessment PATIENT ASSESSED PRIOR TO SEDATION, WITH NO CHANGE NOTED: Yes AIRWAY EVAL/ANESTHESIA PLAN: ASA II, Risks, benefits & alternatives of sedation and/or procedure discussed and Patient agrees to continue as planned Recommendations Surgery/Procedure today Coding Level of Care Code Acute Credit Report Checker for Onofre Barr
--- NOTE | 2021-06-01 09:30 | PC.NURSE ---
Received patient from cath lab tech at this time. Pt alert and oriented at this time. Denies pain. Breathing even and non-labored. Right femoral has dressing, clean dry and intact. No signs of hematoma. Pedal pulses palpable. Pt placed on bedside radiographer cardiac catheterization.
--- NOTE | 2021-06-01 09:57 | PC.NURSE ---
Clarification of post procedure fluids Obtained verbal order for continuation of IVF post procedure to run at 100ml/hr until discharge. IVF running at 100ml/hr from bag obtained intraprocedure.
--- NOTE | 2021-06-01 12:40 | PC.NURSE ---
3 hr bedrest completed. Pt ambulated around unit for about 5 minutes. Right femoral site assessed when back in bed. No signs of hematoma, dressing clean dry and intact. Pedal pulses palpable.
--- NOTE | 2021-06-01 13:40 | PC.NURSE ---
Discharge instructions given verbally and by handout at this time. Pt verbalizing understanding of instructions. Brother of patient here to drive home. Right femoral site clean, dry and asymptomatic.
== END 2021-06-01 13:42 | disposition home or self-care (01) ==
PROVIDERS: PCP Family Medicine; Visit Provider Internal Medicine Cardiovascular Disease
DX: I70.223 Atherosclerosis of native arteries of extremities with rest pain, bilateral legs (principal); E78.5 Hyperlipidemia, unspecified; I25.10 Atherosclerotic heart disease of native coronary artery without angina pectoris; Z87.891 Personal history of nicotine dependence; I50.20 Unspecified systolic (congestive) heart failure; I11.0 Hypertensive heart disease with heart failure; Z82.49 Family history of ischemic heart disease and other diseases of the circulatory system; Z83.3 Family history of diabetes mellitus
CPT/HCPCS: 36415; 75625; 75710; C1760; C1769; C1887; C1894; J1644; J2250; J3010; J7030; Q0163; Q9967

== ENCOUNTER → 2021-06-11 10:25 | Outpatient (BNVA) | payer MEDICAID, SELFPAY | PROVIDERS: PCP Family Medicine; Visit Provider Nurse Practitioner Family | DX: Z09 Encounter for follow-up examination after completed treatment for conditions other than malignant neoplasm (principal); I73.9 Peripheral vascular disease, unspecified | CPT/HCPCS: 80048 ==

== ENCOUNTER 2021-06-28 10:29 | Observation (INO) | payer MEDICAID, SELFPAY ==
[2021-06-28] VITALS (34 sets, daily range): BP systolic 106–154; BP diastolic 71–97; PULSE 76–97; RESP 15–16; TEMP 36.5–36.9; O2SAT 90–100; BMI 27.6
--- NOTE | 2021-06-28 06:58 | XACV_ITS ---
Wt: 85 kg BSA: 2.05 m2 Any Known Allergies: Penicillins Gender: Male : 1960 Exam Type: Invasive Peripheral Vascular Procedure(s): Procedure Description: Peripheral Cath Diagnostic Procedure Procedure Description: Lower extremities' angiography Procedure Description: Peripheral vascular Intervention Procedure Description: PV Balloon Procedure Description: Perclose Exam Priority: Routine KHAMU2, Dunaway; Lower Extremity Interventional Findings After exchanging shot left 6 Palauan sheath with a destination 6 Palauan long sheath in the left common femoral artery. Glidewire was advanced over which seeker was placed. After somewhat difficulty I was able to cross through the mid tight highly calcified short lesion of right SFA. Multiple balloon angioplasty was performed. Good angiographic result with good three-vessel runoff noted in the right leg. For inventory please see the main body of the note in detail. Conclusions Reason for peripheral angiogram: Lifestyle limiting claudication of the right leg. History of mid SFA severe calcified subtotal occlusion, sluggish flow in the right popliteal and below the knee as below the knee vessels.Through left common femoral approach selective angiogram of the right common femoral vessel was performed. 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 Right SFA and proximal to mid segment did not have any stenosis. Mid SFA on the right side is subtotally occluded for a short segment which is highly calcified. Sluggish flow in the popliteal and below the right knee noted. Anterior and posterior tibial vessels were not well visualized due to sluggish flow.. null was treated with two Balloon. Recommendations 1-Return to inpatient for close monitoring and routine cath care2-Risk factor modification for secondary prevention3-Statin and aspirin 81 mg life--long, if tolerated4-Patient was pre-loaded with 300 mg of Plavix, continue Plavix 75mg p.o. daily for at least three months.5-Continue optimal medical management6-Follow up with Dr. Dunaway in four weeks and your primary care in 10 days. Hemodynamic Data Phase:Rest AO : 117.0 / 74.0 ( 91.0 ) @ 7:55:00 AM 116.0 / 76.0 ( 91.0 ) @ 8:00:00 AM 111.0 / 77.0 ( 91.0 ) @ 8:09:00 AM Access Site Site: Left Femoral artery Sheath Size: 6 Fr Hemost... Method: Perclose (Shipzi) Hemost... Success: Successful Procedure Details Findings Procedure Consent Obtained. Admit Source: Out Patient. Pre-Procedure Time Out. Identified patient by full name and date of as verbalized by the patient/guarantor. Does the consent match the physician's order: Yes. Accurate & Complete Informed Consent: Yes. Inpatient/Outpatient History & Physical on Chart: Yes. Visualize and Verify Site with Patient/Guarantor: N/A. Relevant Radiology Images available: N/A. Pre-op teaching completed and patient verbalized understanding. The risks, benefits, and alternatives of sedation and/or procedure were discussed by physician. The patient agrees to continue. Procedure started. Current diagnosis: PVD. PERRLA. 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 Lungs clear x 5 lobes. IV Site on Arrival: 20 gauge in the left forearm. IV Fluids: 0.9% NaCl at KVO. 0 mL infused prior to cardiac cath lab radiology technologist. Pre Procedural Pulses: right posterior tibial was 1+. Pre Procedural Pulses: left posterior tibial was 1+. Pre Procedural Pulses: right dorsalis pedis was 1+. Pre Procedural Pulses: left dorsalis pedis was 3+. Oxygen started at 2liters/min via nasal canula. right groin was prepped with chloroprep then draped in the usual sterile fashion. left groin was prepped with chloroprep then draped in the usual sterile fashion. Baseline sample Acquired. HR: 87 BPM. Physician notified. Physician arrived. Physician scrubbed in. Immediate Pre-Procedure Time Out. Correct Patient: Yes; Correct Procedure: Yes; Correct Site: Yes; Correct Patient Position: Yes; Correct Supplies: Yes; Dried Flammable Prep: Yes; Blood Products Available: N/A. Lidocaine 1% infiltrated to the left groin. A 5FrFr RIM catheter in over wire. Hand injection performed through the Rim catheter. Glidewire inserted. Rim catheter removed over the Glidewire. Short 6Fr sheath exchanged for long 45 cm 6Fr Flexor sheath. Seeker catheter inserted over the Glidewire. Glidewire removed. Hand injection performed through the Seeker catheter. Command wire inserted. Seeker catheter removed. Balloon inserted over the wire to the superficial femoral. Inflation number : 1 A AB ARMADA 14 OTW [id number] was prepped and advanced across the Mid Superficial Femoral, Right , then inflated to 14 CASSANDRA for 2:00 seconds. Inflation number: 2 The AB ARMADA 14 OTW [id number] was reinflated across the Mid Superficial Femoral, Right, to 22 CASSANDRA for 1:00 seconds. Balloon out over wire. Seeker catheter inserted over the wire. Hand injection performed through the Seeker. Glidewire inserted. Seeker catheter removed over the Glidewire. Balloon inserted over the wire to the superficial femoral. Inflation number : 3 A AB ARMADA 35 OTW [id number] was prepped and advanced across the Mid Superficial Femoral, Right , then inflated to 8 CASSANDRA for 2:06 seconds. Inflation number: 4 The AB ARMADA 35 OTW [id number] was reinflated across the Mid Superficial Femoral, Right, to 8 CASSANDRA for 1:00 seconds. Balloon out. Right superficial femoral selected and arteriogram with runoff performed @ 10 mL/sec for a total of 30 mL. Wire pulled back and digital subtraction image taken. 6Fr Flexor sheath exchanged for short 6Fr sheath. Post intervention angiography performed to check result. A Left femoral angiogram was performed to determine safe placement of closure device. Sheath upsized to a 6 Fr. A Perclose (Shipzi) was successful obtaining hemostatsis at the Left Femoral artery insertion site. Perclose placed without complications. No signs or symptoms of hematoma noted. Sterile dressing applied per usual sterile fashion. Post Procedure: Pulses reassessed and unchanged. PERRLA. 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 No VTE prophylaxis required. Medication's Wasted: Heparin = 1000 u. Medication's Wasted: Nitro = 49.6 mg. Total IV fluids: 88 mL. Post-op diagnosis: PVD. Complications: none. Estimated blood loss: 5mL-10mL. Responsiveness - Normal response to verbal stimuli; alert and oriented, PERRLA. Airway - Unaffected, no intervention required; spontaneous ventilation. Circulation: W/N/L, pulses unchanged. Nausea/Vomiting: No. Procedure completed. Patient transferred by bed to 1st floor. Perclose partially deployed. 6Fr femoral sheath reinserted and sutured to pressure bag. Vital chart was stopped. Procedure Medications Start: 9:20 AM Stop: 9:20 AM Medication: Versed Amount: 1 mg Route: I.V. Start: 9:20 AM Stop: 9:20 AM Medication: Fentanyl Amount: 50 mcg Route: I.V. Start: 9:24 AM Stop: 9:24 AM Medication: Versed Amount: 1 mg Route: I.V. Start: 9:28 AM Stop: 9:28 AM Medication: Heparin Amount: 5000 units Route: I.V. Start: 9:36 AM Stop: 9:36 AM Medication: Versed Amount: 1 mg Route: I.V. Start: 9:36 AM Stop: 9:36 AM Medication: Fentanyl Amount: 25 mcg Route: I.V. Start: 9:44 AM Stop: 9:44 AM Medication: Versed Amount: 1 mg Route: I.V. Start: 9:44 AM Stop: 9:44 AM Medication: Fentanyl Amount: 25 mcg Route: I.V. Start: 10:09 AM Stop: 10:09 AM Medication: Nitrogylcerin Amount: 400 mcg Route: I.A. I, the attending physician, have reviewed and verified all procedure medications. Yes, all medications given per verbal order History/Risk Factors Hypertension: Yes Dyslipidemia: Yes Peripheral Arterial Disease (PAD): Yes Obesity: No Renal Disease: No Tobacco Use: Current/Recent(w/in 1 year) Prior Interventions PCI: No CABG: No Valve Surgery: No Report Signatures Finalized by Lindsey Dunaway MD on 07/11/2021 06:43 PM
[2021-06-28] MEDS: diphenhydrAMINE 50 mg Capsule PO (07:12)
--- NOTE | 2021-06-28 07:58 | W.PM.OPSUD ---
Surgery/Procedure H&P Update DATE OF PROCEDURE: June 28, 2021 DATE H&P PERFORMED: 06/01/21 H&P UPDATE INFORMATION: I have reviewed H&P completed within last 30 days, I have examined patient prior to procedure and No changes to prior documentation PREOP DIAGNOSIS: Abnormal CTA runoff, lifestyle limiting claudication of right leg PLANNED PROCEDURE: Operation Date: 06/28/21 07:00 Proposed Procedures p Peripheral Intervention(Bilateral) - Lindsey Dunaway MD PATIENT REASSESSED PRIOR TO SEDATION, WITH NO CHANGE NOTED: Yes PHYSICAL EXAM: alert, oriented x 3 and clear to auscultation bilaterally AIRWAY EVAL/ANESTHESIA PLAN: ASA II and Risks, benefits & alternatives of sedation and/or procedure discussed ADDITIONAL INFORMATION: Patient has been explained all risk benefits and alternatives for the procedure. He understands risk for major minor bleeding infection hematoma acute limb ischemia leading to amputation. He would like to proceed with it
[2021-06-28] MEDS: sodium chloride 0.9% 1,000 ML 100 ML IV (10:40)
[2021-06-28] MEDS: clopidogrel 300 mg Tablet PO (12:07)
[2021-06-28] MEDS: aspirin 81 mg EC Tablet PO (12:08)
[2021-06-28 13:29] LABS: Partial Thromboplastin Time 30.1 SECONDS (23.9-36.7)
--- NOTE | 2021-06-28 17:23 | PC.NURSE ---
received from labor economics professor at 1425 via bed ,into room 111-2.report received.pt is awake and alert.sr on monitor.denies pain.left femoral arterial sheath intact to pressurized system.drsg is dry and intact.no hematoma noted.left leg is warm to touch and with brisk capillary refill.palpable dp and pt pulses noted.instructed pt in activity restrictions s/p femoral artery procedure..and instructed pt to notify staff for any bleeding,pain,numbness...or for any concerns at all.pt verb understanding of instructions.
--- NOTE | 2021-06-28 17:28 | PC.NURSE ---
sheath pull: left femoral arterial sheath pulled at 1425.manual pressure held x 20 min.vss through-out procedure.no hematoma formation occurred.left leg remained warm to touch and with brisk capillary refill...and palpable dp and pt pulses noted.instructed pt in activity restrictions s/p arterial sheath pull...and instructed pt to notify staff for any bleeding,pain,numbness..or for any concerns at all.pt verb understanding of instructions
--- NOTE | 2021-06-28 21:18 | PC.NURSE ---
Pt completed scheduled post cath IVF infusion
[2021-06-29 00:45] VITALS: BP 149/90; PULSE 88; RESP 16; TEMP 36.6; O2SAT 94
[2021-06-29 03:59] LABS: Basophils # 0.1 10^3/uL (0.0-0.1); Basophils % 0.6 %; Eosinophils # 0.3 10^3/uL (0.0-0.8); Eosinophils % 2.1 %; Hematocrit 41.1 % (42.0-52.0); Hemoglobin 13.8 g/dL (11.7-16.6); Lymphocytes # 2.9 10^3/uL (0.8-4.8); Lymphocytes % 20.5 %; Mean Corpuscular HGB Conc 33.6 g/dL (30.0-36.0); Mean Corpuscular Hemoglobin 29.4 pg (28.0-34.0); Mean Corpuscular Volume 87.4 fl (80-94); Mean Platelet Volume 10.2 fL (7.4-10.4); Monocytes # 0.9 10^3/uL (0.2-0.9); Monocytes % 6.6 %; Neutrophils # 9.64 10^3/uL (1.8-7.7); Neutrophils % 67.9 %; Nucleated Red Blood Cells % 0 %; Platelet Count 213 10^3/cmm (130-400); Red Cell Distribution Width 13.6 % (12.1-15.1); White Blood Count 14.2 10^3/uL (4.0-10.0)
[2021-06-29 04:00] VITALS: BP 113/65; PULSE 90; RESP 16; TEMP 36.5; O2SAT 97
[2021-06-29 04:22] LABS: Anion Gap 17.4 (5-19); Blood Urea Nitrogen 12 mg/dL (8-23); Carbon Dioxide 22 mmol/L (22-29); Chloride 103 mmol/L (98-107); Glucose 89 mg/dL (65-115); Osmolality Calculated 287 mOsm/kg (285-295); Potassium 3.4 mmol/L (3.5-5.1); Sodium 139 mmol/L (136-145)
[2021-06-29 06:00] VITALS: PULSE 93
[2021-06-29] MEDS: aspirin 81 mg EC Tablet PO (07:48)
[2021-06-29] MEDS: clopidogrel 75 mg Tablet PO (07:49)
[2021-06-29 09:31] VITALS: BP 150/89; PULSE 95; RESP 18; TEMP 36.6; O2SAT 94
--- NOTE | 2021-06-29 10:55 | P.DS_ITS ---
Discharge Providers Date of Admission: 06/28/21 10:29 Date of Discharge: June 29, 2021 Attending Provider at Admission: Lindsey Dunaway MD Attending Provider at Discharge: Lindsey Dunaway MD Primary Care Provider: Olayinka Chris MD Reason for Visit Reason for Visit: 76701 i73.9 peripheral artery disease Hospital Course Hospital Course 60-year-old male past medical history significant for lifestyle limiting claudication underwent peripheral angiogram to left groin approach, he was noted to have highly calcified short subtotally occluded mid SFA. It was treated with balloon angioplasty with excellent angiographic results and good peripheral flow was achieved both above and below the knee with three-vessel runoff. Postop care remain uncomplicated left groin wound looks good he has good palpable right-sided pulses of the lower extremity including dorsalis pedis and posterior tibial. He is walking around without any pain. He has been di scharged home we will continue Plavix for at least 3 months. Physical Exam Narrative: EXAM NARRATIVE: GENERAL: Patient is alert, awake and oriented x3. NECK: No jugular vein distension. HEENT: No cyanosis. No icterus. No pallor. HEART: Regular S1 and S2. No murmur, rub or gallop. LUNGS: Clear to auscultate bilaterally. ABDOMEN: Soft, nontender and nondistended. Positive bowel sounds. No guarding, rebound or tenderness. CENTRAL NERVOUS SYSTEM: Grossly nonfocal. EXTREMITIES: Lower extremities without edema bilaterally. Pulses palpable in the lower extremities, both dorsalis pedis and posterior tibial. Const: COMMON NORMALS: alert Resp: COMMON NORMALS: clear to auscultation bilaterally AUSCULTATION: clear to auscultation bilaterally Neuro: SENSORIUM/ORIENTATION: Yes alert Discharge Data Data Completed and Pending: Pending at discharge Category Date Time Status INSURANCE CUSTOMER SERVICE SPECIALIST request for service Routin e Exams 06/28/21 06:58 Taken Labs from last 24 hours 06/29/21 06/29/21 06/28/21 03:34 03:34 13:00 WBC 14.2 H RBC 4.70 Hgb 13.8 Hct 41.1 L MCV 87.4 MCH 29.4 MCHC 33.6 RDW 13.6 Plt Count 213 MPV 10.2 Neut % (Auto) 67.9 Lymph % (Auto) 20.5 Callaway % (Auto) 6.6 Eos % (Auto) 2.1 Baso % (Auto) 0.6 Neut # (Auto) 9.64 H Lymph # (Auto) 2.9 Callaway # (Auto) 0.9 Eos # (Auto) 0.3 Baso # (Auto) 0.1 Nucleated RBC % (a uto) 0 Nucleated RBCs # 0.0 APTT 30.1 Sodium 139 Potassium 3.4 L Chloride 103 Carbon Dioxide 22 Anion Gap 17.4 BUN 12 Creatinine 0.6 L GFR Calculation 137.0 H Glucose 89 Calculated Osmolal ity 287 Calcium 9.0 Vitals: Last Vital Signs Temp 97.8 F 06/29/21 09:31 Pulse 95 06/29/21 09:31 Resp 18 06/29/21 09:31 BP 150/89 06/29/21 09:31 Pulse Ox 94 06/29/21 09:31 Discharge Plan Discharge Patient Disposition: Home Condition: Stable Prescriptions: New clopidogrel 75 mg Tablet 75 mg PO DAILY Qty: 90 RF: 0 aspirin 81 mg Tablet,Delayed Release (Dr/Ec) 81 mg PO DAILY Qty: 90 RF: 4 Continued metoprolol tartrate 25 mg tablet 25 mg PO DAILY RF: 0 clonazepam 0.5 mg tablet 0.5 mg PO BID PRN (Reason: Anxiety) RF: 0 trazodone 100 mg tablet 100 mg PO BEDTIME RF: 0 atorvastatin 40 mg tablet 40 mg PO DAILY RF: 0 duloxetine 60 mg capsule,delayed release(DR/EC) 60 mg PO DAILY RF: 0 bupropion HCl [Wellbutrin SR] 150 mg tablet sustained-release 12 hr 150 mg PO BID RF: 0 isosorbide mononitrate 30 mg tablet extended release 24 hr 15 mg PO BID Qty: 90 RF: 3 nitroglycerin [Nitrostat] 0.4 mg tablet, sublingual 0.4 mg sublingual Q5M PRN (Reason: chest pain) Qty: 25 RF: 3 spironolactone 25 mg tablet 12.5 mg PO DAILY Qty: 30 RF: 2 donepezil 5 mg tablet See Rx Instructions .ROUTE .COMPLEX Qty: 30 RF: 1 furosemide 20 mg tablet 20 mg PO DAILY Qty: 30 RF: 2 gabapentin 400 mg tablet 400 mg PO TID RF: 0 lisinopril 30 mg tablet 30 mg PO DAILY RF: 0 Discharge Orders: Discharge Order (Routine); Ordered 06/29/21 Ordered By: Lindsey Dunaway Referrals: Lindsey Dunaway MD [Physician] - 08/01/21 1:00 pm (You have a cardiology followup with Dr. Dunaway at [facility] on Aug 01 at 1:00pm) Radha Zavaleta FNP [Nurse Practitioner] - 07/10/21 3:30 pm (You have a post Procedure followup with JOHANNY Macdonald at [facility] on July 10 at 3:30pm) Discharge Diet: Cardiac Discharge Activity: Increase activity as tolerated Patient Instructions: Aspirin (By mouth), Clopidogrel (By mouth) (Plavix), Peripheral Vascular Angioplasty (DC), Opioid Safety, Post Angiogram Home Care Instructions Activity Restrictions/Additional Instructions: Follow-up with Radha Zavaleta in 7 days. Follow-up with Dr. Espinal in 6 months Discharge Attestations Time Spent in Discharge Care*: less than 30 min Specific Discharge Activities: educating patient Time Spent in Smoking Cessation: 3 to 10 minutes Quality Metrics Clinical Quality Measures During this hospital stay, did patient experience: None Coding Level of Care Code Acute Chg FW DC note Exam Expanded Problem Focused
[2021-06-29 11:34] VITALS: BP 159/91; PULSE 83; RESP 18; TEMP 36.6; O2SAT 100
[2021-06-29 11:41] VITALS: BP 159/91; PULSE 83; RESP 18; TEMP 36.6; O2SAT 100
--- NOTE | 2021-06-29 11:42 | PC.NURSE ---
patient education provided, patient has no questions or concerns. patient VS stable upon departure and IV was removed.
--- NOTE | 2021-07-01 15:22 | W.PM.OPSUD ---
Surgery/Procedure H&P Update DATE OF PROCEDURE: July 01, 2021 DATE H&P PERFORMED: 06/01/21 H&P UPDATE INFORMATION: I have reviewed H&P completed within last 30 days and I have examined patient prior to procedure PREOP DIAGNOSIS: Abnormal CTA runoff, lifestyle limiting claudication of lower extremities PLANNED PROCEDURE: Operation Date: 06/28/21 07:00 Proposed Procedures p Peripheral Intervention(Bilateral) - Lindsey Dunaway MD
== END 2021-06-29 11:45 | disposition home or self-care (01) ==
LOC: CSU 10:30
PROVIDERS: Admitting Provider Internal Medicine Cardiovascular Disease; PCP Family Medicine; Visit Provider Internal Medicine Cardiovascular Disease
DX: I70.201 Unspecified atherosclerosis of native arteries of extremities, right leg (principal); E78.5 Hyperlipidemia, unspecified; I25.10 Atherosclerotic heart disease of native coronary artery without angina pectoris; I11.0 Hypertensive heart disease with heart failure; I50.22 Chronic systolic (congestive) heart failure; Z95.1 Presence of aortocoronary bypass graft
CPT/HCPCS: 36415; 37224; 80048; 85025; 85730; C1725; C1760; C1769; C1887; C1894; G0378; J1644; J2250; J3010; J3490; J7030; Q0163; Q9967

== ENCOUNTER 2021-11-12 09:12 | Outpatient (CLI) | payer MEDICAID, SELFPAY ==
--- NOTE | 2021-11-12 09:20 | CT_ITS ---
WS: [id number] LDCT LUNG CANCER SCREENING TECHNIQUE: Noncontrast CT of the chest with coronal and sagittal reformatted images. CLINICAL INFORMATION: NICOTINE DEPENDENCE COMPARISON: June 07, 2020 DLP: 85.49 mGy.cm DIvol: Mean CTDIvol: 1.60 (mGy) All CT scans at [facility] use at least one of these dose optimization techniques: automat ed exposure control; mA and/or kV adjustment per patient size (includes targeted exams where dose is matched to clinical indication); or iterative reconstruction. FINDINGS: Moderate chronic emphysematous changes. No acute pulmonary infiltrates. No focal pneumonia or pleural fluid. No suspicious pulmonary parenchymal opacities. Normal caliber thoracic aorta. Aortic calcification. Coronary calcification. No mediastinal or hilar lymphadenopathy. Calcified azygous esophageal recess lymph node unchanged. Small esophageal hiatal he rnia. Mild thickening of the distal esophagus is unchanged. Adrenal glands are normal. Mild hypertrop hic changes mid thoracic spine. CT/CT lung screening [id number] IMPRESSION: LUNG-RADS: 1-Negative FOLLOW UP: 12 Month: Continue annual screening with LDCT
== END 2021-11-12 09:13 | disposition home or self-care (01) ==
LOC: RAD 09:17
PROVIDERS: PCP Family Medicine; Visit Provider Family Medicine
DX: Z12.2 Encounter for screening for malignant neoplasm of respiratory organs (principal); F17.210 Nicotine dependence, cigarettes, uncomplicated
CPT/HCPCS: 71271

== ENCOUNTER → 2022-01-28 14:31 | Outpatient (BNVA) | payer MEDICAID, SELFPAY | PROVIDERS: PCP Family Medicine; Visit Provider Internal Medicine | DX: I25.10 Atherosclerotic heart disease of native coronary artery without angina pectoris (principal); I11.0 Hypertensive heart disease with heart failure; I50.20 Unspecified systolic (congestive) heart failure; I73.9 Peripheral vascular disease, unspecified; E78.5 Hyperlipidemia, unspecified; F17.210 Nicotine dependence, cigarettes, uncomplicated | CPT/HCPCS: 99214 ==

== ENCOUNTER 2022-03-04 12:38 | Outpatient (CLI) | payer MEDICAID, SELFPAY ==
--- NOTE | 2022-03-04 13:00 | USCV_ITS ---
AnithaNiraj juarez Age: 61 Gender: M : 1960 Exam Date: 03/04/2022 13:05 Ordering Phys: Darorn Espinal M.D ([email or web address]) Technologist: Glo Brower Exam Location: [facility] [place] Indication: chest pain BP: 134 / 78 HR: 99 Rhythm: Sinus Technical Quality: Good MEASUREMENTS (Male / Female) Normal Values 2D ECHO LV Diastolic Diameter PLAX 5.6 cm 4.2 - 5.9 / 3.9 - 5.3 cm LV Systolic Diameter PLAX 5.2 cm IVS Diastolic Thickness 1.3 cm 0.6 - 1.0 / 0.6 - 0.9 cm IVS Systolic Thickness 1.7 cm LVPW Diastolic Thickness 1.1 cm 0.6 - 1.0 / 0.6 - 0.9 cm LVPW Systolic Thickness 1.1 cm LVOT Diameter 2.1 cm LV Ejection Fraction 2D Teich 16.0 % LV Ejection Fraction MOD 2C 39.9 % LV Ejection Fraction 2C AL 40.6 % LA Diameter 3.1 cm LA Width 3.7 cm LA Height 5.9 cm RA Width 4.1 cm RA Height 4.6 cm Aorta at Sinotubular Diameter 3.6 cm IVC Diameter 1.0 cm M-MODE MV E Point Septal Separation 2.4 cm DOPPLER AV Peak Velocity 118.0 cm/s LVOT Peak Velocity 91.0 cm/s AV Area Cont Eq vti 3.0 cm squared AV Area Cont Eq pk 2.7 cm squared MV Peak Velocity 93.0 cm/s MV Area PHT 5.7 cm squared Mitral E to A Ratio 1.1 MV E' Velocity 42.6 cm/s Mitral E to MV E' Ratio 20.1 Mitral E to LV E' Lateral Ratio 17.5 Mitral E to LV E' Septal Ratio 23.7 PV Peak Velocity 79.0 cm/s RV Acceleration Time 0.1 s RV Ejection Time 0.2 s RV AcT/ET 0.6 FINDINGS Left Ventricle Left ventricle is normal in size. LV systolic function is moderately reduced with EF of 35 to 40%. Mild global hypokinesis with moderate hypokinesis of mid to apical anteroseptal, anterior and apical ward. Grade 1 diastolic dysfunction Right Ventricle Right ventricle is normal in size and function Right Atrium Normal in size Left Atrium Normal in size Mitral Valve Thickened mitral valve. Mild mitral regurgitation Aortic Valve Structurally normal aortic valve. No significant stenosis or regurgitation. Tricuspid Valve Trace tricuspid regurgitation. Insufficient TR jet to evaluate RVSP. Pulmonic Valve Not well-visualized Pericardium Small to moderate sized pericardial effusion is seen. Aorta Mildly dilated aortic root IVC IVC appears to be normal CONCLUSIONS LV systolic function is moderately reduced with EF of 35 to 40%. Above-mentioned regional wall motion abnormalities Grade 1 diastolic dysfunction Mild mitral regurgitation Trace tricuspid regurgitation Small to moderate size pericardial effusion is seen. Mildly dilated aortic root Compared to prior echocardiogram from 03/06/2021, small to moderate sized pericardial effusion is seen. LV systolic function has improved Darron Espinal MD (Electronically Signed) Final Date: 16 March 2022 21:54 S
== END 2022-03-04 12:39 | disposition home or self-care (01) ==
PROVIDERS: PCP Family Medicine; Visit Provider Internal Medicine
DX: I08.1 Rheumatic disorders of both mitral and tricuspid valves (principal); I31.3 Pericardial effusion (noninflammatory); R06.02 Shortness of breath
CPT/HCPCS: 93306

== ENCOUNTER 2022-04-22 07:57 | Outpatient (CLI) | payer MEDICAID, SELFPAY ==
[2022-04-22 08:56] VITALS: BMI 28.0
--- NOTE | 2022-04-22 08:57 | NMCV_ITS ---
NM carmen perf SPECT r/s* [id number] Niraj Welsh Age: 61 Gender: M : 1960 Exam Date: 04/22/2022 09:15 Ordering Phys: Darron Espinal M.D ([email or web address]) Technologist: RAJWINDER Candelario Exam Location: [facility] Indications: CHEST PAIN STRESS TEST Please see separate stress test report in [facility] for full findings IMAGE PROTOCOL Rest/Stress 1 Lexiscan Day Radiopharmaceutical Dose (mCi) Administration Site Administered by Rest: Tc-99m 10.7 IV RAJWINDER Vaughan Sestamibi Stress:Tc-99m 32.6 IV RAJWINDER Vaughan Sestamibi Rest: 22-Apr-2022 60 Discovery 630 Stress: 22-Apr-2022 30 Discovery 630 0.4mg Lexiscan. Images obtained in supine and prone position. SPECT RESULTS Technical Quality: Excellent Raw Data Analysis: Normal Image Corrections: No attenuation or motion correction applied Summed Stress Score: 28 Summed Rest Score: 30 Summed Difference Score: 1 PERFUSION FINDINGS Large sized perfusion abnormality of basal to apical inferior, basal to mid inferolateral, apical lateral, mid to apical anterior and basal to apical anteroseptal and apical ward with somewhat improved tracer uptake in basal to mid anteroseptal wall. FUNCTIONAL RESULTS (calculated via Gated SPECT) Stress Image LV EF (%): 29 Stress EDV (mL):248 TID: 1.06 Stress ESV (mL):175 FUNCTIONAL FINDINGS: The left ventricle is dilated. Transient Ischemia Dilatation of 1.1. The left ventricular ejection fraction is severely reduced with a value of 29%. There is global hypokinesis more so in anterior septal and apical ward. Markedly increased end-diastolic end-systolic volumes. IMPRESSIONS 1. Large size predominantly fixed perfusion abnormality of basal to apical inferior, basal to mid inferolateral, apical lateral, mid to apical anterior and basal to apical anteroseptal and apical ward. 2. This may be suggestive of old myocardial infarction in multivessel coronary artery territories without significant rebecca-infarct ischemia. 3. Overall left ventricular systolic function is severely reduced with regional wall motion abnormalities, LVEF=29%. 4. EKG portion of the study will be reported separately. Coby Humphreys MD (Electronically Signed) Final Date: 25 April 2022 12:20 S
--- NOTE | 2022-04-22 08:57 | ECG_ITS ---
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 Interpretive Statements Date of study: 22 April 2022 Name of study: Lexiscan sestamibi myocardial perfusion imaging PROCEDURE: At the baseline, the blood pressure was 153/85 mmHg with a heart rate of 89 bpm. The electrocardiogram showed sinus rhythm. Possible old inferior myocardial infarction. Anterolateral myocardial infarction of indeterminate age. The Lexiscan was infused over a period of 20 seconds. A total of 0.4 milligrams of Lexiscan was infused. The stress phase was continued for a total of 5 minutes. Heart rate at the end of the stress phase was 104 bpm with a blood pressure of 160/96 mmHg. The EKG at the peak infusion revealed no significant ST-T wave changes. Isolated PVCs noted during Lexiscan infusion. The study was terminated due to protocol completion. Sestamibi was injected 20 seconds after the Lexiscan infusion. Blood pressure at the end of the recovery phase was 159/95 mmHg with a heart rate of 102 beats per minute. CONCLUSION: 1. No significant EKG changes with the LexiScan infusion. 2. No LexiScan induced chest pain or cardiac arrhythmia. 3. Normal blood pressure and heart rate response. 4. Sestamibi/sestamibi perfusion scan pending; see separate report. Electronically Signed On 04-25-2022 12:30:08 CDT by Coby Humphreys M.D. [email or web address]
[2022-04-22] MEDS: regadenoson 0.4 Mg/5 ml Syringe IVP (09:42)
[2022-04-22 09:55] VITALS: BP 159/95; PULSE 101
== END 2022-04-22 07:58 | disposition home or self-care (01) ==
PROVIDERS: PCP Family Medicine; Visit Provider Internal Medicine
DX: R07.9 Chest pain, unspecified (principal)
CPT/HCPCS: 78452; 93017; A9500; J2785

== ENCOUNTER → 2022-07-30 14:43 | Outpatient (BNVA) | payer MEDICAID, SELFPAY | PROVIDERS: PCP Family Medicine; Visit Provider Family Medicine | DX: R52 Pain, unspecified (principal) | CPT/HCPCS: 72100; 73502 ==

== ENCOUNTER → 2022-08-07 13:36 | Outpatient (BNVA) | payer MEDICAID, SELFPAY | PROVIDERS: PCP Family Medicine; Visit Provider Internal Medicine | DX: I25.10 Atherosclerotic heart disease of native coronary artery without angina pectoris (principal); I11.0 Hypertensive heart disease with heart failure; I50.20 Unspecified systolic (congestive) heart failure; I73.9 Peripheral vascular disease, unspecified; E78.5 Hyperlipidemia, unspecified; F17.210 Nicotine dependence, cigarettes, uncomplicated | CPT/HCPCS: 99214 ==

== ENCOUNTER 2022-08-26 09:32 | Outpatient (CLI) | payer MEDICAID, SELFPAY ==
--- NOTE | 2022-08-26 10:15 | MR_ITS ---
WS: [id number] MRI LUMBAR SPINE NONCONTRAST HISTORY: M54.50 - Low back pain, unspecified, fell 3 months ago. COMPARISON: Radiographs 07/30/2022 and prior MRI 05/08/2009 TECHNIQUE: Sagittal and axial multisequence imaging is submitted. Straightening of the normal cervical lordosis with slight reversal. Disc osteophyte with contact on t he ventral cord at C3-4 slightly greatest to the LEFT of midline. Moderate LEFT scoliosis of the lumbar spine with asymmetric disc space narrowing. Severe disc space n arrowing at L3-4. Adjacent L3-4 marrow edema. There is also small amount of marrow edema in the adjac ent L5-S1 endplates. No acute fracture. L3 retrolisthesis by 6 mm. Conus terminates normally at L1. L1-L2: Normal. L2-L3: Mild asymmetric disc bulging. No significant stenosis. L3-L4: Diffuse asymmetric disc bulging with mild encroachment upon the ventral thecal sac and into th e subarticular recesses. No focal disc protrusion. Mild ligamentum flavum hypertrophy and facet arthr itis. Foraminal osteophytes and disc bulging causing moderate bilateral subarticular recess encroachm ent and foraminal stenosis. There is disc encroachment upon the traversing L4 nerve roots bilaterally . L4-L5: Mild annular disc bulging and facet joint arthritis. Moderate bilateral foraminal stenosis, RI GHT greater than LEFT. There is a small disc protrusion in the RIGHT foramen seen best on the sagitta l projection with contact on the exiting RIGHT L4 nerve root. L5-S1: Diffuse asymmetric disc bulging to the LEFT. Severe LEFT foraminal stenosis. There is complete effacement of fat in the LEFT foramen. Suspect disc protrusion contributing to the stenosis. There i s disc contacting on the LEFT S1 nerve root and the LEFT L5 nerve root. Only mild RIGHT foraminal eduardo rowing. Paravertebral soft tissues are negative. MR/MR lumbar spine wo con* [id number] IMPRESSION: 1. Severe LEFT foraminal stenosis at L5-S1. Complete effacement of fat in the LEFT foramen. Stenosis due to combination of disc protrusion, disc bulging with facet and ligamentum flavum disease. Additional mild contact on the traversing LEFT S1 nerve root. 2. Moderate bilateral subarticular recess and foraminal stenosis at L3-4. Disc contacts the traversing L4 nerve roots. 3. Moderate bilateral foraminal stenosis at L4-5, RIGHT greater than LEFT. Add itional disc protrusion in the RIGHT L4-5 foramen contacting the exiting RIGHT L4 nerve root. 4. Degenerative LEFT scoliosis. 5. Severe degenerative disc disease at L3-4 and moderate at L5-S1. 6. No acute fracture.
== END 2022-08-26 09:33 | disposition home or self-care (01) ==
PROVIDERS: PCP Family Medicine; Visit Provider Family Medicine
DX: M54.50 Low back pain, unspecified (principal); M48.07 Spinal stenosis, lumbosacral region; M48.061 Spinal stenosis, lumbar region without neurogenic claudication; M51.36 Other intervertebral disc degeneration, lumbar region; M51.37 Other intervertebral disc degeneration, lumbosacral region
CPT/HCPCS: 72148